=== PATIENT | female | born 2005 | race Two or more races ===

== ENCOUNTER 2023-08-17 14:11 | Emergency (ER) | payer MEDICAID ==
[~2023-08-17] VITALS: Ht 160 cm; Wt 71.5 kg
[2023-08-17 14:25] VITALS: BP 133/81; PULSE 74; RESP 18; O2SAT 98
[2023-08-17] MEDS ORDERED: ALBUTEROL MEDNEB 2.5 mg/3ml NEB NEB ONE (15:45)
[2023-08-17] MEDS ORDERED: IPRATROPIUM BROM 0.5 MG/2.5ML INH SOL NEB ONE (15:45)
[2023-08-17] MEDS ORDERED: PROM1SOL4 PO (16:45)
[2023-08-17] MEDS ORDERED: ALBU108A5 IN (16:45)
== END 2023-08-17 17:00 | disposition home or self-care (01) ==
LOC: ER 14:11
DX: J20.9 Acute bronchitis, unspecified (principal); R06.02 Shortness of breath; R07.89 Other chest pain
CPT/HCPCS: 71045; 94640